=== PATIENT | female | born 1970 | race Asian ===

== ENCOUNTER 2024-04-09 09:33 | Day surgery (SDC) | payer OTHER, SELFPAY ==
[2024-04-09 10:07] VITALS: BP 134/81; PULSE 82; RESP 17; TEMP 36.9; O2SAT 98
[2024-04-09] MEDS: LACTATED RINGERS 1,000 ML 42 ML IV (10:07)
--- NOTE | 2024-04-09 10:57 | PM.HP.1 ---
History of Present Illness History of Present Illness Date Patient Seen: 04/09/24 Time Patient Seen: 10:57 Chief complaint: Colonoscopy Narrative: Colon cancer screening. First colonoscopy. No family history PFSH Social History Smoking Status: Never smoker alcohol intake: never Meds Home Medications and Allergies Allergies Allergy/AdvReac Type Severity Reaction Status Date / Time acetaminophen AdvReac Intermediate Palpitation Verified 04/09/24 10:06 s Review of Systems Review of Systems ROS: Yes All systems reviewed with the patient and are negative except as otherwise documented Exam Vital Signs (past 8 hours): - 04/09/24 10:07 Temperature 98.4 F Pulse Rate 82 Respiratory Rate 17 Blood Pressure 134/81 Pulse Oximetry 98 Oxygen Delivery Method Room Air Oxygen Delivery Method Room Air Const General: cooperative and healthy appearing Nutritional Appearance: average body habitus HENMT Head: normal to inspection Eyes General: appearance normal, both eyes and all related structures Sclera: sclerae normal Neck Neck: trachea midline Resp Effort & Inspection: normal respiratory effort and able to speak in complete sentences Cardio Rate: regular rate Rhythm: regular rhythm Skin General: turgor normal and No atrophy Neuro General: patient alert, patient awake and patient oriented x3 Cognition: normal cognition Psych Judgment: judgment good Assessment & Plan Assessment & Plan narrative: Colon cancer screening with colonoscopy using anesthesia Time-Based Coding :: [TOTAL MINUTES] spent with patient and on the chart (including review of chart, obtaining history, exam, reviewing outside data, placing orders, documenting exam and treatment plan, and counseling patient) on [DATE].
--- NOTE | 2024-04-09 11:12 | PM.OP.COLON ---
Operative Date/Time/Diagnoses Date of procedure: 04/09/24 Time of procedure: 11:12 Pre-op diagnosis: Colon cancer screening Post-op diagnosis: same Procedure & Clinicians Study performed: Colonoscopy with anesthesia Same procedure as scheduled: Yes Indications: Colon cancer screening Surgeon: Pastora Mcgarry Procedure Notes Procedure in detail: Preop diagnosis: Colon cancer screening Postop diagnosis: Same Operative procedure: Colonoscopy with anesthesia Surgeon: Karin Mcgarry MD Findings: Normal colonoscopy. No polyps Procedure: Patient placed in a lateral position. Rectal exam performed showing normal tone no masses. Colonoscope inserted into the rectum and advanced to ileocecal valve with minimal difficulty. Insufflation and extraction of the scope and the above findings. Retroflex was included in the rectum. Impression: Normal colonoscopy. No polyps identified. Plan: Repeat colonoscopy in 10 years unless otherwise indicated by change in clinical condition Specimen(s): none sent Complications: none Post-procedure Recommendations: Colonoscopy in 10 years Follow up: as needed Disposition: PACU
[2024-04-09 11:15] VITALS: BP 84/51; PULSE 68; RESP 13; TEMP 36.7; O2SAT 97
[2024-04-09 11:20] VITALS: BP 86/52; PULSE 66; RESP 15; O2SAT 98
[2024-04-09 11:25] VITALS: BP 92/60; PULSE 62; RESP 15
[2024-04-09 11:30] VITALS: BP 94/59; PULSE 72; RESP 15; TEMP 36.7; O2SAT 98
== END 2024-04-09 11:50 | disposition home or self-care (01) ==
PROVIDERS: Referring Provider Surgery; Visit Provider Surgery
PROC: 0DJD8ZZ Inspection of Lower Intestinal Tract, Via Natural or Artificial Opening Endoscopic (ICD-10-PCS; CPT 45378; principal; 2024-04-09 10:45)
DX: Z12.11 Encounter for screening for malignant neoplasm of colon (principal)
CPT/HCPCS: 45378; J2704